=== PATIENT | female | born 1985 | race Caucasian/White ===

== ENCOUNTER 2018-10-23 13:53 | Inpatient (IN) | payer OTHER ==
[~2018-10-23] VITALS: Ht 167 cm; Wt 70.9 kg
[2018-10-23] MEDS ORDERED: RINGERS SOLUTION,LACTATED 1,000 ML IV PRN (13:58)
[2018-10-23] MEDS ORDERED: OXYGEN THERAPY IH SCH (14:00)
[2018-10-23] MEDS ORDERED: MINERAL OIL 30 ML UDCUP VG ONE (14:00)
[2018-10-23] MEDS ORDERED: LIDOCAINE/PF 1% 30 ML VIAL INJ PRN (14:00)
[2018-10-23] MEDS ORDERED: CITRIC ACID/SODIUM CITRATE 30 ML SOLUTION UDCUP PO PRN (14:00)
[2018-10-23] MEDS ORDERED: METHYLERGONOVINE MALEATE 0.2 MG/ML VIAL IM PRN (14:00)
[2018-10-23] MEDS ORDERED: METOCLOPRAMIDE HCL 5 MG/ML 2 ML VIAL IVP PRN (14:00)
[2018-10-23] MEDS ORDERED: MISOPROSTOL 50 MCG TABLET PO ONE (14:15)
[2018-10-23 14:39] LABS: BASOPHILS % (AUTO) 0.3 % (0.0-2.0); EOSINOPHILS % (AUTO) 0.8 % (1.0-6.0); HEMATOCRIT 36.8 % (36-46); HEMOGLOBIN 12.1 g/dL (12.0-16.0); LYMPHOCYTES # (AUTO) 1.5 K/uL (1.0-4.8); LYMPHOCYTES % (AUTO) 18.1 % (22.0-44.0); MEAN CORPUSCULAR HEMOGLOBIN 28.7 pg (26.0-34.0); MEAN CORPUSCULAR HGB CONC 32.9 G/dL (31.0-37.0); MEAN CORPUSCULAR VOLUME 87 fL (80-100); MONOCYTES # (AUTO) 0.5 K/uL (0.1-1.0); MONOCYTES % (AUTO) 6.5 % (2.0-9.0); NEUTROPHILS % (AUTO) 74.3 % (40.0-70.0); PLATELET COUNT (AUTO) 205 K/uL (150-450); RED BLOOD CELL COUNT(AUTO) 4.22 MIL/uL (4.00-5.20); RED CELL DISTRIBUTION WIDTH 14.5 % (11.5-14.5)
[2018-10-23] MEDS: RINGERS SOLUTION,LACTATED 1,000 ML IV SCH ×2 (15:32→22:21)
[2018-10-23 15:33] VITALS: BP 108/68
[2018-10-23] MEDS: FentaNYL CITRATE-PF 100 MCG/2 ML VIAL IVP PRN ×2 (19:56→20:01)
[2018-10-23] MEDS ORDERED: MISOPROSTOL 25 MCG TABLET PO SCH (20:00)
[2018-10-23] MEDS: MISOPROSTOL 25 MCG TABLET PO SCH (20:52)
[2018-10-24] MEDS: MISOPROSTOL 25 MCG TABLET PO SCH (01:24)
[2018-10-24] MEDS ORDERED: OXYTOCIN 30 UNITS/LACT RINGERS 500 ML IV PRN (02:57)
[2018-10-24] MEDS: FentaNYL CITRATE-PF 100 MCG/2 ML VIAL IVP PRN ×4 (06:09→14:53)
[2018-10-24] MEDS: RINGERS SOLUTION,LACTATED 1,000 ML IV SCH ×2 (06:10→14:48)
[2018-10-24] MEDS ORDERED: ROPIVACAINE HCL/PF 0.2% 100 ML ED ONE (15:19)
[2018-10-24] MEDS ORDERED: DiphenhydrAMINE HCL 50 MG/ML VIAL IVP PRN (16:15)
[2018-10-24] MEDS ORDERED: ROPIVACAINE HCL/PF 0.2% 100 ML ED PRN (16:15)
[2018-10-24] MEDS ORDERED: ONDANSETRON HCL 4 MG/2 ML VIAL IVP PRN (16:15)
[2018-10-24] MEDS ORDERED: OXYTOCIN 30 UNITS/LACT RINGERS 500 ML IV ONE (20:08)
[2018-10-24] MEDS ORDERED: RINGERS SOLUTION,LACTATED 1,000 ML IV ONE (20:40)
[2018-10-24] MEDS ORDERED: OxyCODONE HCL/ACETAMINOPHEN 5-325 MG TABLET PO PRN (20:45)
[2018-10-24] MEDS ORDERED: GLYCERIN/WITCH HAZEL LEAF 40 PADS JAR TP PRN (20:45)
[2018-10-24] MEDS ORDERED: BENZOCAINE 20%/MENTHOL 56 GM SPRAY CANISTER TP PRN (20:45)
[2018-10-24] MEDS ORDERED: LANOLIN 7 GM OINTMENT TP PRN (20:45)
[2018-10-24] MEDS ORDERED: MEASLES/MUMPS/RUBELLA VACCINE, LIVE 0.5 ML/VIAL SQ ONE (20:45)
[2018-10-24] MEDS: MAGNESIUM HYDROXIDE SUSPENSION 30 ML UDCUP PO SCH (20:58)
[2018-10-25] MEDS: MAGNESIUM HYDROXIDE SUSPENSION 30 ML UDCUP PO SCH (09:08)
[2018-10-25] MEDS ORDERED: IBUP-2071 PO (18:13)
[2018-10-25] MEDS ORDERED: DSS100 PO (18:14)
[2018-10-26] MEDS: IBUPROFEN 600 MG TABLET PO PRN ×2 (01:17→07:47)
[2018-10-26] MEDS: OxyCODONE HCL/ACETAMINOPHEN 5-325 MG TABLET PO PRN ×2 (01:17→07:47)
== END 2018-10-26 09:10 | disposition home or self-care (01) | DRG 807 ==
LOC: OBSVTOIN 13:53 → 4S 13:53
PROVIDERS: ADMIT Obstetrics & Gynecology; ATTEND Obstetrics & Gynecology
PROC: 10E0XZZ Delivery of Products of Conception, External Approach (ICD-10-PCS; principal; 2018-10-24)
PROC: 0W8NXZZ Division of Female Perineum, External Approach (ICD-10-PCS; 2018-10-24)
PROC: 3E0R3BZ Introduction of Anesthetic Agent into Spinal Canal, Percutaneous Approach (ICD-10-PCS; 2018-10-24)
PROC: 00HU33Z Insertion of Infusion Device into Spinal Canal, Percutaneous Approach (ICD-10-PCS; 2018-10-24)
DX: O77.0 Labor and delivery complicated by meconium in amniotic fluid (principal); Z37.0 Single live birth; Z3A.40 40 weeks gestation of pregnancy
CPT/HCPCS: 76805; 86850; 86900; 86901; J2590; J2795; J3010; J7120